=== PATIENT | female | born 1985 ===

== ENCOUNTER 2019-03-14 14:29 | Emergency (ER) | payer MEDICAID ==
[2019-03-14 14:37] VITALS: BP 134/80; PULSE 99; RESP 18; TEMP 98.6; O2SAT 100
--- NOTE | 2019-03-19 07:49 | CARD ---
APPROVED REPORT Date of service: 03/14/2019 EKG Measurement Heart [id number] <Conclusion> Normal sinus rhythm Nonspecific T wave abnormality Abnormal ECG
== END 2019-03-14 16:37 | disposition left against medical advice (07) ==
LOC: C.ER 14:29
DX: Z02.89 Encounter for other administrative examinations (principal); R53.83 Other fatigue
CPT/HCPCS: 93005; LWBS0